=== PATIENT | female | born 1955 | race Caucasian/White ===

== ENCOUNTER 2022-09-09 10:41 | Outpatient (REF) | payer OTHER, SELFPAY ==
--- NOTE | ~2022-09-09 | MR_ITS ---
EXAMINATION: MR BRAIN WITHOUT CONTRAST CLINICAL INFORMATION: White matter abnormality. COMPARISON: Brain MRI 08/23/2021. TECHNIQUE: Multiplanar, multisequence imaging of the brain was performed without intravenous contrast. FINDINGS: There is no acute infarction, hemorrhage, mass, or extra-axial fluid collection. 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 The major arterial flow voids are preserved at the skull base. The orbital contents appear normal. The extracranial structures appear normal. MR/MR head/brain wo con IMPRESSION: No acute intracranial abnormality. Stable exam compared with 08/23/2021. Moderate T2/FLAIR hyperintensity in the cerebral white matter and central larry most likely representing sequela of chronic microangiopathy.
== END 2022-09-09 10:42 | disposition home or self-care (01) ==
LOC: HO.MRI 10:41
PROVIDERS: PCP Internal Medicine; Visit Provider Psychiatry & Neurology Neurology
DX: R90.82 White matter disease, unspecified (principal)
CPT/HCPCS: 70551